=== PATIENT | female | born 1990 | race African-American/Black ===

== ENCOUNTER 2016-11-07 20:55 | Emergency (ER) | payer MEDICAID, OTHER ==
[~2016-11-07] VITALS: Ht 167.6 cm; Wt 100.0 kg
[2016-11-07 22:36] LABS: HEMATOCRIT. 33.9 % (36.0-48.0); HEMOGLOBIN. 11.6 g/dL (12.0-16.0); MEAN CORPUSCULAR HEMOGLOBIN 27.7 pg (28.0-32.0); MEAN CORPUSCULAR HGB CONC 34.3 g/dL (31.0-37.0); MEAN CORPUSCULAR VOLUME 80.8 fL (81.0-99.0); MEAN PLATELET VOLUME 8.9 fl (7.4-10.4); PLATELET 222 x1000/uL (130-400); RED CELL DISTRIBUTION WIDTH 13.9 % (11.6-14.6); WHITE BLOOD COUNT 9.9 x1000/uL (4.5-11.0)
[2016-11-07] MEDS ORDERED: DICYCLOMINE 10 MG/5 ML ORAL SYR PO STA (22:36)
[2016-11-07 22:40] VITALS: BP 118/67
[2016-11-07 22:40] LABS: DIFFERENTIAL COMMENT 1
[2016-11-07 22:41] LABS: CHLORIDE 99 mEq/L (98-107); INDEX HEMOLYSI 1 (1-3); INDEX ICTERIC 1 (1-4); INDEX LIPEMIC 1 (1-3)
[2016-11-07 22:41] LABS: CLARITY URINE CLOUDY (CLEAR); COLOR URINE YELLOW (YELLOW); GLUCOSE URINE NEGATIVE (NEGATIVE); KETONES URINE TRACE (NEGATIVE); LEUKOCYTE ESTERASE URINE 3+ (NEGATIVE); NITRITE URINE POSITIVE (NEGATIVE); OCCULT BLOOD URINE 2+ (NEGATIVE); PH URINE 5.5 (4.5-8.0); PROTEIN URINE NEGATIVE (NEGATIVE); SPECIFIC GRAVITY URINE 1.012 (1.005-1.030); UROBILINOGEN URINE 0.2 E.U./dL (0.2-1.0)
[2016-11-07 22:50] LABS: ALANINE AMINOTRANSFERASE 12 IU/L (13-61); ALBUMIN 3.4 g/dL (3.4-5.0); ANION GAP 13; CALCIUM 8.7 mg/dL (8.5-10.1); CARBON DIOXIDE 28 mEq/L (21-32); UREA NITROGEN BLOOD 8 mg/dL (7-21); eGFR > 60 mL/min (>60)
[2016-11-07 22:59] LABS: WBC URINE 15-25 /hpf (0-2)
[2016-11-07 23:00] LABS: BACTERIA URINE 3+; SQUAMOUS EPITHELIAL CELL URINE NONE SEEN /lpf (RARE/1+)
[2016-11-07 23:04] LABS: ANISOCYTOSIS 1+; HYPOCHROMASIA 1+; PLATELET ESTIMATE NORMAL
== END 2016-11-08 00:09 | disposition home or self-care (01) ==
LOC: ER 20:56
DX: N12 Tubulo-interstitial nephritis, not specified as acute or chronic (principal); F17.210 Nicotine dependence, cigarettes, uncomplicated; Z90.49 Acquired absence of other specified parts of digestive tract
CPT/HCPCS: 36415; 80053; 81001; 81025; 83690; 85025; 99284

== ENCOUNTER 2016-11-26 10:55 | Emergency (ER) | payer OTHER ==
[~2016-11-26] VITALS: Ht 172.7 cm; Wt 86.0 kg
[2016-11-26] MEDS ORDERED: HYDROCODONE/ACETAMINOPHEN 5/325MG TABLET PO ONE (12:45)
[2016-11-26] MEDS ORDERED: ONDANSETRON 4MG ODT PO ONE (12:45)
[2016-11-26 12:49] VITALS: BP 123/69
== END 2016-11-26 12:53 | disposition home or self-care (01) ==
LOC: ER 11:55
DX: K08.89 Other specified disorders of teeth and supporting structures (principal); F12.10 Cannabis abuse, uncomplicated; F17.200 Nicotine dependence, unspecified, uncomplicated
CPT/HCPCS: 99283; Q0162

== ENCOUNTER 2017-03-03 18:35 | Emergency (ER) | payer OTHER ==
[~2017-03-03] VITALS: Ht 170.2 cm; Wt 95.0 kg
[2017-03-04] MEDS ORDERED: ONDANSETRON 4MG ODT PO ONE (00:30)
[2017-03-04] MEDS ORDERED: MORPHINE SULFATE 4 MG/ML CPJ (NOT FOR IM USE) IV ONE (00:30)
[2017-03-04] MEDS ORDERED: MORPHINE SULFATE 10 MG/ML CPJ IM NR (00:45)
[2017-03-04 00:57] VITALS: BP 125/85
== END 2017-03-04 01:21 | disposition home or self-care (01) ==
LOC: ER 18:47
DX: K04.7 Periapical abscess without sinus (principal); R03.0 Elevated blood-pressure reading, without diagnosis of hypertension; F12.90 Cannabis use, unspecified, uncomplicated
CPT/HCPCS: 96374; 99284; J2270; Q0162; Z7610

== ENCOUNTER 2017-03-07 06:01 | Emergency (ER) | payer OTHER ==
[~2017-03-07] VITALS: Ht 170.2 cm; Wt 96.0 kg
[2017-03-07 07:18] LABS: GLUCOSE URINE NEGATIVE (NEGATIVE); KETONES URINE NEGATIVE (NEGATIVE); LEUKOCYTE ESTERASE URINE 2+ (NEGATIVE); NITRITE URINE NEGATIVE (NEGATIVE); OCCULT BLOOD URINE NEGATIVE (NEGATIVE); PH URINE 7.5 (4.5-8.0); PROTEIN URINE NEGATIVE (NEGATIVE)
[2017-03-07 07:22] LABS: CLARITY URINE CLEAR (CLEAR); COLOR URINE YELLOW (YELLOW)
[2017-03-07] MEDS ORDERED: KETOROLAC 60MG/2ML VIAL IM ONE (08:45)
[2017-03-07] MEDS ORDERED: FAMOTIDINE 20MG TABLET PO ONE (09:00)
[2017-03-07 09:10] LABS: BASOPHILS % 0.4 % (0.0-2.0); EOSINOPHILS % 0.5 % (0.0-5.0); HEMATOCRIT. 28.1 % (36.0-48.0); HEMOGLOBIN. 9.4 g/dL (12.0-16.0); LYMPHOCYTES % 41.7 % (20.0-50.0); MEAN CORPUSCULAR HEMOGLOBIN 26.9 pg (28.0-32.0); MEAN CORPUSCULAR VOLUME 80.4 fL (81.0-99.0); MEAN PLATELET VOLUME 8.4 fl (7.4-10.4); MONOCYTES % 5.9 % (2.0-8.0); NEUTROPHILS % 51.5 % (40.0-76.0); PLATELET 235 x1000/uL (130-400); RED CELL DISTRIBUTION WIDTH 14.7 % (11.6-14.6)
[2017-03-07 09:18] LABS: CARBON DIOXIDE 28 mEq/L (21-32); CHLORIDE 106 mEq/L (98-107)
[2017-03-07 10:36] VITALS: BP 110/65
== END 2017-03-07 10:39 | disposition home or self-care (01) ==
LOC: ER 07:22
DX: J40 Bronchitis, not specified as acute or chronic (principal); N39.0 Urinary tract infection, site not specified; F17.200 Nicotine dependence, unspecified, uncomplicated; R10.13 Epigastric pain
CPT/HCPCS: 36415; 71020; 80053; 81001; 81025; 83690; 85025; 96372; 99285; 99406; J1885

== ENCOUNTER 2017-05-09 23:25 | Emergency (ER) | payer OTHER | END 2017-05-09 23:58 | disposition left against medical advice (07) | LOC: ER 23:25 | DX: R10.9 Unspecified abdominal pain (principal); Z53.21 Procedure and treatment not carried out due to patient leaving prior to being seen by health care provider ==

== ENCOUNTER 2017-05-25 21:50 | Emergency (ER) | payer MEDICAID, OTHER ==
[~2017-05-25] VITALS: Ht 170.2 cm; Wt 99.7 kg
[2017-05-26] MEDS ORDERED: HYDROCODONE/ACETAMINOPHEN 5/325MG TABLET PO ONE (03:45)
[2017-05-26] MEDS ORDERED: BACITRACIN ZINC OINT UDPKT TOP ONE (04:00)
[2017-05-26] MEDS ORDERED: TETANUS, DIPHTHERIA, PERTUSSIS VAC/PF 0.5ML (>7YR OLD) IM ONE (04:00)
[2017-05-26] MEDS ORDERED: LIDOCAINE HCL 1% 20ML VIAL (Pyxis) INJ MC ONE (04:00)
[2017-05-26] MEDS ORDERED: ONDANSETRON 4MG ODT PO ONE (05:15)
[2017-05-26 07:13] VITALS: BP 98/62
== END 2017-05-26 07:25 | disposition home or self-care (01) ==
LOC: ER 21:50
DX: S01.81XA Laceration without foreign body of other part of head, initial encounter (principal); S81.811A Laceration without foreign body, right lower leg, initial encounter; F17.210 Nicotine dependence, cigarettes, uncomplicated; X99.1XXA Assault by knife, initial encounter; Y93.89 Activity, other specified; Y92.018 Other place in single-family (private) house as the place of occurrence of the external cause
CPT/HCPCS: 12001; 12011; 90471; 90715; 99284; J3490; Q0162; Z7610

== ENCOUNTER 2018-01-15 23:50 | Emergency (ER) | payer SELFPAY ==
[~2018-01-15] VITALS: Ht 172.7 cm; Wt 82.0 kg
[2018-01-16] MEDS ORDERED: SODIUM CHLORIDE 0.9% 1,000 ML IV ONE (01:51)
[2018-01-16 02:05] VITALS: BP 85/48
[2018-01-16 02:24] LABS: BASOPHILS % 0.5 % (0.0-2.0); EOSINOPHILS % 0.2 % (0.0-5.0); LYMPHOCYTES % 23.2 % (20.0-50.0); MEAN CORPUSCULAR HEMOGLOBIN 27.1 pg (28.0-32.0); MEAN CORPUSCULAR VOLUME 78.4 fL (81.0-99.0); MEAN PLATELET VOLUME 8.8 fl (7.4-10.4); MONOCYTES % 6.5 % (2.0-8.0); NEUTROPHILS % 69.6 % (40.0-76.0); PLATELET 256 x1000/uL (130-400); RED BLOOD CELL COUNT 4.08 mill/uL (4.2-5.4); RED CELL DISTRIBUTION WIDTH 15.8 % (11.6-14.6)
[2018-01-16 02:32] LABS: PROTHROMBIN TIME 10.5 sec (9.4-11.6)
[2018-01-16 02:37] LABS: CHLORIDE 103 mEq/L (98-107)
[2018-01-16 02:55] LABS: CLARITY URINE CLOUDY (CLEAR); COLOR URINE YELLOW (YELLOW); KETONES URINE NEGATIVE (NEGATIVE); LEUKOCYTE ESTERASE URINE TRACE (NEGATIVE); NITRITE URINE NEGATIVE (NEGATIVE); OCCULT BLOOD URINE NEGATIVE (NEGATIVE); PH URINE 6.5 (4.5-8.0); PROTEIN URINE NEGATIVE (NEGATIVE); SPECIFIC GRAVITY URINE 1.013 (1.005-1.030)
[2018-01-16 03:02] LABS: B-HCG QUANTITATIVE 42420 mIU/mL (<3)
== END 2018-01-16 06:22 | disposition home or self-care (01) ==
LOC: ER 23:50
DX: O26.891 Other specified pregnancy related conditions, first trimester (principal); R42 Dizziness and giddiness; O23.41 Unspecified infection of urinary tract in pregnancy, first trimester; Z3A.14 14 weeks gestation of pregnancy
CPT/HCPCS: 36415; 76815; 80053; 81003; 81025; 84702; 85025; 85610; 86850; 86900; 86901; 93005; 96360; 96361; 99285; J7030

== ENCOUNTER 2018-04-05 01:06 | Emergency (ER) | payer BC, MEDICAID ==
[~2018-04-05] VITALS: Ht 170.2 cm; Wt 100.9 kg
[2018-04-05] MEDS ORDERED: SODIUM CHLORIDE 0.9% 1,000 ML IV ONE ×2 (02:47→08:00)
[2018-04-05] MEDS ORDERED: ONDANSETRON HCL 4MG/2ML VIAL IV ONE (03:00)
[2018-04-05] MEDS ORDERED: ACETAMINOPHEN 325MG TABLET PO PRN (03:00)
[2018-04-05 03:17] LABS: BASOPHILS % 0.2 % (0.0-2.0); EOSINOPHILS % 0.4 % (0.0-5.0); LYMPHOCYTES % 27.9 % (20.0-50.0); MEAN CORPUSCULAR HEMOGLOBIN 27.7 pg (28.0-32.0); MEAN CORPUSCULAR VOLUME 80.5 fL (81.0-99.0); MEAN PLATELET VOLUME 8.9 fl (7.4-10.4); MONOCYTES % 6.7 % (2.0-8.0); NEUTROPHILS % 64.8 % (40.0-76.0); PLATELET 247 x1000/uL (130-400); RED BLOOD CELL COUNT 3.61 mill/uL (4.2-5.4); RED CELL DISTRIBUTION WIDTH 14.7 % (11.6-14.6)
[2018-04-05 03:18] LABS: CHLORIDE 104 mEq/L (98-107); PROTHROMBIN TIME 10.3 sec (9.1-11.1)
[2018-04-05 03:42] LABS: B-HCG QUANTITATIVE 4132 mIU/mL (<3)
[2018-04-05 08:36] LABS: CLARITY URINE CLEAR (CLEAR); COLOR URINE YELLOW (YELLOW); KETONES URINE NEGATIVE (NEGATIVE); LEUKOCYTE ESTERASE URINE NEGATIVE (NEGATIVE); NITRITE URINE NEGATIVE (NEGATIVE); OCCULT BLOOD URINE NEGATIVE (NEGATIVE); PH URINE 5.5 (4.5-8.0); PROTEIN URINE NEGATIVE (NEGATIVE); SPECIFIC GRAVITY URINE 1.017 (1.005-1.030); UROBILINOGEN URINE 0.2 E.U./dL (0.2-1.0)
[2018-04-05 09:01] VITALS: BP 103/55
== END 2018-04-05 09:02 | disposition home or self-care (01) ==
LOC: ER 01:06
DX: O26.892 Other specified pregnancy related conditions, second trimester (principal); K29.00 Acute gastritis without bleeding; K08.89 Other specified disorders of teeth and supporting structures; O99.013 Anemia complicating pregnancy, third trimester; D50.9 Iron deficiency anemia, unspecified; O32.1XX0 Maternal care for breech presentation, not applicable or unspecified; Z3A.28 28 weeks gestation of pregnancy; Z90.49 Acquired absence of other specified parts of digestive tract
CPT/HCPCS: 36415; 76805; 80053; 81003; 84702; 85025; 85610; 96361; 96374; 99285; J2405; J7030; Z7610

== ENCOUNTER 2020-05-01 07:26 | Emergency (ER) | payer BC, MEDICAID ==
[~2020-05-01] VITALS: Ht 172.7 cm; Wt 99.8 kg
[2020-05-01 07:40] VITALS: BP 100/58
[2020-05-01] MEDS: IBUPROFEN 600MG TABLET PO ONE ×2 (09:28→09:29)
== END 2020-05-01 09:55 | disposition home or self-care (01) ==
LOC: ER 08:03
DX: J06.9 Acute upper respiratory infection, unspecified (principal); Z90.49 Acquired absence of other specified parts of digestive tract
CPT/HCPCS: 99283; C9803; U0003

== ENCOUNTER 2025-05-16 23:23 | Emergency (ER) | payer MEDICAID ==
[~2025-05-16] VITALS: Ht 170.2 cm; Wt 103.9 kg
[2025-05-16 23:35] VITALS: O2SAT 100
[2025-05-17] MEDS: ACETAMINOPHEN 500MG TABLET PO ONE (02:03)
[2025-05-17] MEDS ORDERED: LIDO700A30 TP (04:19)
[2025-05-17] MEDS ORDERED: CYCL10TA21 MT (04:19)
[2025-05-17] MEDS ORDERED: IBUP-1455 MT (04:22)
[2025-05-17] MEDS: LIDOCAINE 5% PATCH TOP STA (04:29)
[2025-05-17] MEDS: CYCLOBENZAPRINE 10MG TABLET PO ONE (04:29)
[2025-05-17 04:31] VITALS: BP 99/57; PULSE 68; RESP 18; TEMP 36.8; O2SAT 100
== END 2025-05-17 04:33 | disposition home or self-care (01) ==
LOC: ER 23:23
DX: M25.562 Pain in left knee (principal); M54.50 Low back pain, unspecified; Z90.49 Acquired absence of other specified parts of digestive tract; Z79.899 Other long term (current) drug therapy; W01.0XXA Fall on same level from slipping, tripping and stumbling without subsequent striking against object, initial encounter; Y93.89 Activity, other specified; Y92.89 Other specified places as the place of occurrence of the external cause; Y99.8 Other external cause status
CPT/HCPCS: 73562; 99284